=== PATIENT | male | born 1940 | race Caucasian/White ===

== ENCOUNTER → 2018-02-10 | Outpatient (CLI) | payer OTHER ==
[~2018-02-10] MED LIST: ATOR10 PO; ATORVASTATIN CA10 MG PO; ATORVASTATIN CA20 MG PO; CHOL10002; DOCU100 PO; Duragesic 12 M12 MCG TOP; HYDR1TAB94 PO; LAVAP17G PO; MULVITMIND PO; NEOMYCIN-POLYMYXIN-H; NUTRISOURCE FIBE4 GM PO; TAMS.4ER PO; TAMSULOSIN HCL0.4 MG PO
== END | disposition home or self-care (01) ==
LOC: PLD 10:20 → LAB SHORT 10:20
DX: C44.612 Basal cell carcinoma of skin of right upper limb, including shoulder (principal); C44.319 Basal cell carcinoma of skin of other parts of face
CPT/HCPCS: 88305

== ENCOUNTER 2018-11-05 23:20 | Emergency (ER) | payer OTHER ==
[~2018-11-05] VITALS: Ht 177.8 cm; Wt 90.7 kg
[~2018-11-05 23:20] MED LIST changes: +CYCL0.05OP
[2018-11-05 23:48] LABS: BASOPHILS ABSOLUTE AUTO 0.05 K/mm3 (0.00-0.23); BASOPHILS PERCENT AUTO 0 % (0-2); EOSINOPHILS ABSOLUTE AUTO 0.38 K/mm3 (0.00-0.68); EOSINOPHILS PERCENT AUTO 3 % (0-6); Hematocrit 34.7 % (37.0-53.0); Hemoglobin 11.2 g/dL (13.5-17.5); IMMATURE GRAN ABSOLUTE AUTO 0.06 K/mm3 (0.00-0.10); IMMATURE GRAN PERCENT AUTO 1 % (0-1); LYMPHOCYTES ABSOLUTE AUTO 0.86 K/mm3 (0.84-5.20); LYMPHOCYTES PERCENT AUTO 7 % (21-46); MONOCYTES ABSOLUTE AUTO 0.69 K/mm3 (0.16-1.47); MONOCYTES PERCENT AUTO 6 % (4-13); Mean Corpuscular HGB 30.3 pg (26.0-34.0); Mean Corpuscular HGB Conc 32.3 g/dL (31.5-36.5); Mean Corpuscular Volume 94 fL (80-100); NEUTROPHILS ABSOLUTE AUTO 9.67 K/mm3 (1.96-9.15); NEUTROPHILS PERCENT AUTO 83 % (41-73); Platelet Count 319 K/mm3 (150-400); RDW Coefficient Variation 14.1 % (11.7-14.2); RDW Standard Deviation 48.2 fL (35.1-46.3); White Blood Cell Count 11.71 K/mm3 (4.00-11.30)
[2018-11-06 00:05] LABS: Alanine Aminotransfer (ALT/SGP 52 U/L (12-78); Albumin, Blood 3.3 g/dL (3.4-5.0); Albumin/Globulin Ratio 0.9 (0.8-1.8); Alk Phos 107 U/L (50-136); Anion Gap 8 mmol/L (6-16); Aspartate Aminotrans (AST/SGOT 40 U/L (12-37); Bilirubin, Total 0.3 mg/dL (0.1-1.0); Blood Urea Nitrogen 22 mg/dL (8-24); CO2, Blood 26 mmol/L (21-32); Calcium, Blood 8.7 mg/dL (8.5-10.1); Chloride, Blood 108 mmol/L (98-108); Creatinine, Blood 0.88 mg/dL (0.60-1.20); Globulin, Blood 3.6 g/dL (2.2-4.0); Glomerular Filtration Rate >60 (60-); Glucose, Blood 124 mg/dL (70-99); Potassium, Blood 4.4 mmol/L (3.5-5.5); Sodium, Blood 142 mmol/L (136-145); Total Protein, Blood 6.9 g/dL (6.4-8.2)
[2018-11-06 00:41] LABS: International Normalized Ratio 1.04
[2018-11-06] MEDS ORDERED: AMLO10 PO (00:57)
[2018-11-06] MEDS ORDERED: ACET500 (00:57)
[2018-11-06] MEDS ORDERED: ASPI81CH PO (00:58)
[2018-11-06] MEDS ORDERED: ASCO500 PO (00:58)
[2018-11-06] MEDS ORDERED: ATOR20 PO (00:59)
[2018-11-06] MEDS ORDERED: Ferrous Sulfat325 M2 PO (01:00)
[2018-11-06] MEDS ORDERED: FURO40 PO (01:01)
[2018-11-06] MEDS ORDERED: POTCHL20ER PO (01:02)
[2018-11-06] MEDS ORDERED: Hydrocodone-Ap1 EA23 PO (01:02)
[2018-11-06 02:23] LABS: Source, Urine Clean Catch
[2018-11-06 02:25] LABS: Bilirubin, Urine Neg (Neg); Blood, Urine 1+ (Neg); Glucose Qualitative, Urine Neg (Neg); Ketones, Urine Neg (Neg); Leukocyte Esterase, Urine Neg (Neg); Nitrite, Urine Neg (Neg); Protein, Urine Neg (Neg); Specific Gravity, Urine 1.015 (1.003-1.022); Urobilinogen, Urine NORM (Normal)
[2018-11-06 02:27] LABS: Appearance, Urine Clear (Clear); Color, Urine Yellow (P-Yellow)
[2018-11-06 02:31] LABS: Bacteria Not Seen /hpf; Squamous Epithelial Cells Not Seen /hpf (Few); White Blood Cells, Urine 0-2 /hpf (0-5)
[2018-11-06] MEDS ORDERED: Roxicodone5 MG PO (02:38)
== END 2018-11-06 03:00 | disposition home or self-care (01) ==
LOC: ER 23:20
PROVIDERS: Emergency Medicine
DX: N13.2 Hydronephrosis with renal and ureteral calculous obstruction (principal); Z79.899 Other long term (current) drug therapy
CPT/HCPCS: 36415; 74177; 80053; 81001; 83690; 85025; 85610; 85730; 96374; 96375; 96376; 99284-25; J1170; J2405; Q9967

== ENCOUNTER → 2019-02-22 | Outpatient (CLI) | payer OTHER ==
[~2019-02-22] MED LIST changes: +ACET500; +AMLO10 PO; +ASCO500 PO; +ASPI81CH PO; +ATOR20 PO; +FURO40 PO; +Ferrous Sulfat325 M2 PO; +Hydrocodone-Ap1 EA23 PO; +POTCHL20ER PO; +Roxicodone5 MG PO
== END | disposition home or self-care (01) ==
LOC: LAB SHORT 10:09 → PLD 10:09
DX: C44.319 Basal cell carcinoma of skin of other parts of face (principal); C44.519 Basal cell carcinoma of skin of other part of trunk
CPT/HCPCS: 88305

== ENCOUNTER → 2021-01-09 | Outpatient (CLI) | payer MEDICARE | LOC: PLD 12:29 → LAB SHORT 12:29 | DX: D48.5 Neoplasm of uncertain behavior of skin (principal); L57.0 Actinic keratosis; L90.5 Scar conditions and fibrosis of skin | CPT/HCPCS: 88305 ==

== ENCOUNTER 2022-03-12 23:24 | Inpatient (IN) | payer MEDICARE ==
[~2022-03-12] VITALS: Ht 175.3 cm; Wt 77.3 kg
[2022-03-13 00:02] LABS: BASOPHILS ABSOLUTE AUTO 0.04 K/mm3 (0.00-0.23); BASOPHILS PERCENT AUTO 1 % (0-2); EOSINOPHILS PERCENT AUTO 5 % (0-6); Hematocrit 34.5 % (37.0-53.0); Hemoglobin 11.5 g/dL (13.5-17.5); IMMATURE GRAN ABSOLUTE AUTO 0.01 K/mm3 (0.00-0.10); IMMATURE GRAN PERCENT AUTO 0 % (0-1); LYMPHOCYTES ABSOLUTE AUTO 1.64 K/mm3 (0.84-5.20); LYMPHOCYTES PERCENT AUTO 21 % (21-46); MONOCYTES ABSOLUTE AUTO 0.64 K/mm3 (0.16-1.47); MONOCYTES PERCENT AUTO 8 % (4-13); Mean Corpuscular HGB 31.1 pg (26.0-34.0); Mean Corpuscular HGB Conc 33.3 g/dL (31.5-36.5); Mean Corpuscular Volume 93 fL (80-100); Mean Platelet Volume 12.4 fL (9.1-12.4); NEUTROPHILS ABSOLUTE AUTO 5.07 K/mm3 (1.96-9.15); NEUTROPHILS PERCENT AUTO 65 % (41-73); Platelet Count 156 K/mm3 (150-400); RDW Coefficient Variation 13.3 % (11.7-14.2); RDW Standard Deviation 45.7 fL (35.1-46.3)
[2022-03-13] MEDS ORDERED: CLOP75 PO (00:02)
[2022-03-13] MEDS ORDERED: ESCI10 (00:04)
[2022-03-13 00:22] LABS: Albumin, Blood 3.5 g/dL (3.4-5.0); Albumin/Globulin Ratio 1.3 (0.8-1.8); Bilirubin, Total 0.5 mg/dL (0.1-1.0); Bun/Creatinine Ratio 44.8 (12.0-20.0); Calcium, Blood 9.5 mg/dL (8.5-10.1); Creatinine, Blood 0.67 mg/dL (0.60-1.20); Globulin, Blood 2.7 g/dL (2.2-4.0); Potassium, Blood 4.4 mmol/L (3.5-5.5); Total Protein, Blood 6.2 g/dL (6.4-8.2)
--- NOTE | 2022-03-13 03:05 | NUR ---
Pt admitted to PCU. Pt is A&O. VSS on RA. Pt upt to bathroom with supervision. Tele: Sinus holger 50-60s. Clear liquid diet at this time.
--- NOTE | 2022-03-13 04:18 | NUR ---
Pt had bright red liquid stool.
[2022-03-13 06:27] LABS: BASOPHILS ABSOLUTE AUTO 0.04 K/mm3 (0.00-0.23); BASOPHILS PERCENT AUTO 1 % (0-2); EOSINOPHILS ABSOLUTE AUTO 0.33 K/mm3 (0.00-0.68); EOSINOPHILS PERCENT AUTO 6 % (0-6); Hematocrit 28.7 % (37.0-53.0); Hemoglobin 9.5 g/dL (13.5-17.5); IMMATURE GRAN ABSOLUTE AUTO 0.02 K/mm3 (0.00-0.10); IMMATURE GRAN PERCENT AUTO 0 % (0-1); LYMPHOCYTES ABSOLUTE AUTO 1.55 K/mm3 (0.84-5.20); LYMPHOCYTES PERCENT AUTO 28 % (21-46); MONOCYTES ABSOLUTE AUTO 0.48 K/mm3 (0.16-1.47); MONOCYTES PERCENT AUTO 9 % (4-13); Mean Corpuscular HGB Conc 33.1 g/dL (31.5-36.5); Mean Corpuscular Volume 94 fL (80-100); Mean Platelet Volume 12.8 fL (9.1-12.4); NEUTROPHILS ABSOLUTE AUTO 3.15 K/mm3 (1.96-9.15); NEUTROPHILS PERCENT AUTO 57 % (41-73); Platelet Count 136 K/mm3 (150-400); RDW Coefficient Variation 13.6 % (11.7-14.2); RDW Standard Deviation 46.7 fL (35.1-46.3); Red Blood Cell Count 3.06 M/mm3 (4.30-5.90); White Blood Cell Count 5.57 K/mm3 (4.00-11.30)
--- NOTE | 2022-03-13 06:36 | NUR ---
Bowel prep was started. Stools still bright red w/ clots at this time.
[2022-03-13 06:47] LABS: Albumin, Blood 2.9 g/dL (3.4-5.0); Albumin/Globulin Ratio 1.3 (0.8-1.8); Bilirubin, Total 0.4 mg/dL (0.1-1.0); Bun/Creatinine Ratio 39.2 (12.0-20.0); Calcium, Blood 8.8 mg/dL (8.5-10.1); Creatinine, Blood 0.61 mg/dL (0.60-1.20); Globulin, Blood 2.2 g/dL (2.2-4.0); Potassium, Blood 4.1 mmol/L (3.5-5.5); Total Protein, Blood 5.1 g/dL (6.4-8.2)
[2022-03-13 12:14] LABS: Hemoglobin 10.2 g/dL (13.5-17.5)
[2022-03-13 13:58] LABS: SARS-Cov-2 (COVID-19) PCR, MMC NEGATIVE (NEGATIVE)
--- NOTE | 2022-03-13 15:59 | NUR ---
Patient in Day Surgery for planned colonosocpy. Reports taking all of colon prep with "blood" output. History, Chart, Medications and Allergies reviewed before start of procedure. Patient confirms NPO status and agrees with scheduled surgery.
--- NOTE | 2022-03-13 16:30 | NUR ---
PT TO PROCEDURE PT LEFT FOR SCOPE AT APPROXIMATELY 1530. A&Ox4, VSS, SPO2> 92%, SR 60'S. PERIPHERAL IV SALINE LOCKED, PT CHANGED INTO HOSPITAL GOWN. PT WITH ONE 100ML LIQUID BLOODY STOOL JUST BEFORE LEAVING FOR SCOPE.
--- NOTE | 2022-03-13 16:31 | NUR ---
03/13/22 1631 Ronnie Tomlinson History, Chart, Medications and Allergies reviewed before start of procedure. Patient confirms NPO status and agrees with scheduled surgery. 3-LEAD EKG REVIEWED WITH PHYSICIAN PRIOR TO START OF PROCEDURE. MONITOR INTACT WITH CONTINUOUS PULSE OXIMETRY AND INTERMITTENT BP. PATIENT DETERMINED TO BE ASA APPROPRIATE FOR PROPOFOL SEDATION PRIOR TO START OF PROCEDURE BY DR. SMALLWOOD
--- NOTE | 2022-03-13 17:38 | NUR ---
UPDATE PT BACK TO PCU ROOM AT APPROXIMATELY 1700. MD REPORT UNABLE TO COMPLETE SCOPE D/T LACK OF VISABLITY. WITH INSTRUCTION FOR PT TO REPEAT GOLYTELY. WILL NOTIFY MD WHEN PT IS FINISHED WITH GOLYTELY.
--- NOTE | 2022-03-13 18:29 | NUR ---
SHIFT SUMMARY PT A&Ox4, VSS, SPO2> 92% RA, SB-SR 50-60'S. PT WITH MULTIPLE EPISODES OF BRIGHT RED LIQUID STOOLS THIS SHIFT. NOTIFIED THAT PT FINISHED GOLYTELY. WITH PLAN TO SCOPE PT TONIGHT. WILL CONTINUE TO MONITOR AND PROVIDE CARE UNTIL REPORT TO NOC.
[2022-03-13 18:32] LABS: Hematocrit 30.4 % (37.0-53.0); Hemoglobin 9.9 g/dL (13.5-17.5)
--- NOTE | 2022-03-13 18:54 | NUR ---
THIS RN AGREES W/ STUDENT NURSE DOCUMENTATION THIS SHIFT.
--- NOTE | 2022-03-13 20:59 | NUR ---
SPICE MILLER NOTIFIED RN THAT THERE WERE ST CHANGES SINCE 1829 SINUS RHYTHM WITH PVC'S. CALLED DR ESCOTO AT 2038, DR ESCOTO CALLED BACK AT 2039. NOTIFIED ABOUT PT'S ST CHANGES AND THAT PT WAS NOT EXPERIENCING ANY CP, BLOOD PRESSURE STABLE, SR WITH PVC'S. DR ESCOTO ORDERED EKG; NO OTHER ORDERS DUE TO PATIENT DENYING CP
--- NOTE | 2022-03-13 21:31 | NUR ---
PT WENT DOWN FOR COLONOSCOPY AT 2119.
--- NOTE | 2022-03-13 21:44 | NUR ---
PT IS ALERT AND ORIENTED X4. DENIES CP, NAUSEA, TINGLING, AND NUMBNESS. PT HAD CLEAR LUNG SOUNDS W/ SP02 >90% WHILE ON RA. SR WITH BBB IN THE HIGH 50'S-60'S. PT HAD ONE LARGE ANGÉLICA RED LIQUID STOOL. SWIMMING POOL SERVICE TECHNICIAN NOTIFIED RN OF ST CHANGES (SEE NOTES). PT'S HAS BEEN IN ROOM SINCE 2030
--- NOTE | 2022-03-13 22:36 | NUR ---
03/13/22 2236 Bhumi Banks History, Chart, Medications and Allergies reviewed before start of procedure. Patient confirms NPO status and agrees with scheduled surgery. 3-LEAD EKG REVIEWED WITH PHYSICIAN PRIOR TO START OF PROCEDURE. MONITOR INTACT WITH CONTINUOUS PULSE OXIMETRY AND INTERMITTENT BP. PATIENT DETERMINED TO BE ASA APPROPRIATE FOR PROPOFOL SEDATION PRIOR TO START OF PROCEDURE BY
--- NOTE | 2022-03-13 23:51 | NUR ---
PT CAME BACK FROM PACU AT 2334. PER REPORT HIS BLEED WAS CLAMPED WITH 4 CLIPS AND WAS CAUSED BY A SMALL DIVERTICULI. NURSE ALSO STATED THAT DR SMALLWOOD FOUND SEVERAL DIVERTICULUM. PT ALSO HAD 2MG OF VERSED AND 420 MCG PROPOFOL. PT IS ON CLEAR LIQUID DIET. RECOVERY VITALS STARTED. SCD'S PUT ON AND PT NOTIFIED TO USE CALL LIGHT IF RESTROOM IS NEEDED.
[2022-03-14 04:09] LABS: BASOPHILS ABSOLUTE AUTO 0.04 K/mm3 (0.00-0.23); BASOPHILS PERCENT AUTO 1 % (0-2); EOSINOPHILS ABSOLUTE AUTO 0.05 K/mm3 (0.00-0.68); EOSINOPHILS PERCENT AUTO 1 % (0-6); Hemoglobin 7.6 g/dL (13.5-17.5); IMMATURE GRAN ABSOLUTE AUTO 0.01 K/mm3 (0.00-0.10); IMMATURE GRAN PERCENT AUTO 0 % (0-1); LYMPHOCYTES ABSOLUTE AUTO 0.88 K/mm3 (0.84-5.20); LYMPHOCYTES PERCENT AUTO 17 % (21-46); MONOCYTES PERCENT AUTO 6 % (4-13); Mean Corpuscular HGB 31.4 pg (26.0-34.0); Mean Corpuscular Volume 95 fL (80-100); Mean Platelet Volume 12.8 fL (9.1-12.4); NEUTROPHILS ABSOLUTE AUTO 3.82 K/mm3 (1.96-9.15); NEUTROPHILS PERCENT AUTO 75 % (41-73); Platelet Count 129 K/mm3 (150-400); RDW Coefficient Variation 13.5 % (11.7-14.2); RDW Standard Deviation 47.9 fL (35.1-46.3); Red Blood Cell Count 2.42 M/mm3 (4.30-5.90)
[2022-03-14 04:34] LABS: Albumin, Blood 2.6 g/dL (3.4-5.0); Albumin/Globulin Ratio 1.3 (0.8-1.8); Bilirubin, Total 0.5 mg/dL (0.1-1.0); Bun/Creatinine Ratio 29.4 (12.0-20.0); Creatinine, Blood 0.55 mg/dL (0.60-1.20); Potassium, Blood 3.8 mmol/L (3.5-5.5); Total Protein, Blood 4.6 g/dL (6.4-8.2)
--- NOTE | 2022-03-14 06:13 | NUR ---
PT STATED HE SLEPT WELL THROUGH THE NIGHT. PT HAD ANOTHER BLOODY STOOL THAT WAS JELLY LIKE AT 0151.
--- NOTE | 2022-03-14 06:20 | NUR ---
THIS RN AGREES WITH GRADUATE ASSISTANT GIOVANNY Cintron'S DOCUMENTATION.
[2022-03-14 14:20] LABS: BASOPHILS ABSOLUTE AUTO 0.03 K/mm3 (0.00-0.23); BASOPHILS PERCENT AUTO 0 % (0-2); EOSINOPHILS ABSOLUTE AUTO 0.12 K/mm3 (0.00-0.68); EOSINOPHILS PERCENT AUTO 2 % (0-6); Hematocrit 26.1 % (37.0-53.0); Hemoglobin 8.6 g/dL (13.5-17.5); IMMATURE GRAN ABSOLUTE AUTO 0.02 K/mm3 (0.00-0.10); IMMATURE GRAN PERCENT AUTO 0 % (0-1); LYMPHOCYTES ABSOLUTE AUTO 1.54 K/mm3 (0.84-5.20); LYMPHOCYTES PERCENT AUTO 20 % (21-46); MONOCYTES ABSOLUTE AUTO 0.63 K/mm3 (0.16-1.47); MONOCYTES PERCENT AUTO 8 % (4-13); Mean Corpuscular HGB 30.5 pg (26.0-34.0); Mean Corpuscular Volume 93 fL (80-100); Mean Platelet Volume 12.8 fL (9.1-12.4); NEUTROPHILS ABSOLUTE AUTO 5.34 K/mm3 (1.96-9.15); NEUTROPHILS PERCENT AUTO 69 % (41-73); Platelet Count 144 K/mm3 (150-400); RDW Coefficient Variation 15.3 % (11.7-14.2); RDW Standard Deviation 51.7 fL (35.1-46.3); Red Blood Cell Count 2.82 M/mm3 (4.30-5.90); White Blood Cell Count 7.68 K/mm3 (4.00-11.30)
--- NOTE | 2022-03-14 18:16 | NUR ---
SHIFT SUMMARY PT A&O X4. VSS. SPO2 > 92% ON RA. MONITOR SHOWING SB-SR, HR 50's-70's. PT W/ APPROX 700 MLS DARK MAROON/RED MIX OF LIQUID & JELLY LIKE RECTAL OUTPUT THIS SHIFT. PT W/ LIGHTHEADEDNESS GETTING UP TO THE BATHROOM THIS AM. MD SMALLWOOD NOTIFIED OF GI OUTPUT & LIGHTHEADEDNESS (VSS). MD SMALLWOOD W/ ORDER FOR 1 UNIT pRBC's, INFUSED THIS SHIFT. PT TOLERATED WELL. PT THEN DENYING LIGHTHEADEDNESS AFTER RECIEVING BLOOD. PT TOLERATING CLEAR LIQUID DIET (NO REDS). NO OTHER EVENTS.
--- NOTE | 2022-03-14 20:48 | NUR ---
ASSUMPTION OF CARE PT IS ALERT AND ORIENTED X4. PT IS ON TELEMETRY WITH FHB BBB @ 58. TELEMETRY SHOWS THAT THERE ARE ST CHANGES, BUT EKG DID NOT SHOW THE ST CHANGES PER ONCOMING REPORT. HAS CLEAR LUNG SOUNDS SPO2 >90% ON RA. PT HAS PITTING EDEMA IN BLE. BOTH BLE DO NOT LOOK EDEMETOUS, BUT IS PITTING. PT STATED THAT HE HAS BEEN HAVING TROUBLE URINATING WITHOUT HAVING A BOWEL MOVEMENT, BUT THE LAST TWO TIMES HE URINATED HE DID NOT FEEL THE URGE OR HAVE ONE. PT'S CAME INTO THE ROOM AT 1999.
--- NOTE | 2022-03-15 05:21 | NUR ---
SHIFT SUMMARY PT IS ALERT AND ORIENTED X4. PT IS ON TELEMETRY FHB BBB HR @66. LUNG SOUNDS CLEAR SPO2>90%. PT TOOK SCD'S OFF AT 0200. PT HAD ONE SMALL RED/JELLY LIKE BOWEL MOVEMENT. PCT STATED THAT PT WENT TO THE RESTROOM AGAIN, BUT FLUSHED BEFORE SHE COULD SEE IF HE HAD ANOTHER BOWEL MOVEMENT. PT POSSIBLY DISCHARGING 6/4 DEPENDING ON HEMOGLOBIN.
--- NOTE | 2022-03-15 06:09 | NUR ---
THIS RN AGREES WITH FIRER MARINE GIOVANNY Cintron'S DOCUMENTATION
[2022-03-15 06:38] LABS: BASOPHILS ABSOLUTE AUTO 0.03 K/mm3 (0.00-0.23); BASOPHILS PERCENT AUTO 1 % (0-2); EOSINOPHILS ABSOLUTE AUTO 0.25 K/mm3 (0.00-0.68); EOSINOPHILS PERCENT AUTO 4 % (0-6); Hematocrit 20.9 % (37.0-53.0); IMMATURE GRAN ABSOLUTE AUTO 0.02 K/mm3 (0.00-0.10); IMMATURE GRAN PERCENT AUTO 0 % (0-1); LYMPHOCYTES ABSOLUTE AUTO 1.32 K/mm3 (0.84-5.20); LYMPHOCYTES PERCENT AUTO 22 % (21-46); MONOCYTES ABSOLUTE AUTO 0.51 K/mm3 (0.16-1.47); MONOCYTES PERCENT AUTO 9 % (4-13); Mean Corpuscular HGB 30.6 pg (26.0-34.0); Mean Corpuscular HGB Conc 33.5 g/dL (31.5-36.5); Mean Corpuscular Volume 91 fL (80-100); Mean Platelet Volume 12.7 fL (9.1-12.4); NEUTROPHILS ABSOLUTE AUTO 3.81 K/mm3 (1.96-9.15); NEUTROPHILS PERCENT AUTO 64 % (41-73); Platelet Count 125 K/mm3 (150-400); RDW Coefficient Variation 15.5 % (11.7-14.2); RDW Standard Deviation 51.7 fL (35.1-46.3); Red Blood Cell Count 2.29 M/mm3 (4.30-5.90); White Blood Cell Count 5.94 K/mm3 (4.00-11.30)
[2022-03-15 06:51] LABS: Albumin, Blood 2.5 g/dL (3.4-5.0); Anion Gap 5 mmol/L (6-16); Blood Urea Nitrogen 14 mg/dL (8-24); Bun/Creatinine Ratio 25.1 (12.0-20.0); CO2, Blood 27 mmol/L (21-32); Calcium, Blood 8.3 mg/dL (8.5-10.1); Chloride, Blood 112 mmol/L (98-108); Creatinine, Blood 0.56 mg/dL (0.60-1.20); Glomerular Filtration Rate 100 (60-); Glucose, Blood 104 mg/dL (70-99); Phosphorus, Blood 2.5 mg/dL (2.5-4.9); Potassium, Blood 3.5 mmol/L (3.5-5.5); Sodium, Blood 144 mmol/L (136-145)
[2022-03-15 14:17] LABS: Hematocrit 22.2 % (37.0-53.0); Hemoglobin 7.3 g/dL (13.5-17.5)
--- NOTE | 2022-03-15 17:23 | NUR ---
TRANSFER: DR SMALLWOOD IN TO SEE PATIENT REGARDING POSSIBLE TRANSFER. PT CONTINUES TO PASS ANGÉLICA RED CLOTS AND BLOOD RECTALLY. CONT TO CHECK H+H PER ORDERS. PT NPO AT THIS TIME EXCEPT FOR WATER.
--- NOTE | 2022-03-15 17:48 | NUR ---
PT HAS BEEN STABLE THIS SHIFT. PT CONTINUES TO HAVE ANGÉLICA RED CLOTS RECTALLY. LAST H+H 7.3,22.2 DR SMALLWOOD IN TO DISCUSS POSSIBLE TRANSFER FOR FURTHER PROCEDURE SINCE PT HAS CONTINUED TO BLEED. PT MADE NPO EXCEPT FOR WATER. PT UP INDEP TO BATHROOM NEEDED. DENIES LIGHTHEADEDNESS OR DIZZINESS. TELE SINUS RENETTA. AM LABS TO BE REPEATED. AWAITING FURTHER ORDERS FOR TRANSFER.
[2022-03-15 18:49] LABS: Hematocrit 22.8 % (37.0-53.0); Hemoglobin 7.6 g/dL (13.5-17.5); Mean Corpuscular HGB 30.4 pg (26.0-34.0); Mean Corpuscular HGB Conc 33.3 g/dL (31.5-36.5); Mean Corpuscular Volume 91 fL (80-100); Mean Platelet Volume 12.2 fL (9.1-12.4); Platelet Count 144 K/mm3 (150-400); RDW Coefficient Variation 15.2 % (11.7-14.2); RDW Standard Deviation 51.6 fL (35.1-46.3); White Blood Cell Count 7.16 K/mm3 (4.00-11.30)
--- NOTE | 2022-03-15 20:05 | NUR ---
UPDATE CALLED DR SMALLWOOD AT 2001 WITH RN LEIA Mckeon LISTENING ON SPEAKER PHONE. DR SMALLWOOD WAS UPDATED ON PATIENT'S LAB VALUES AND HOW THE PT WAS DOING. DR SMALLWOOD STATED HE WILL BE BY TO TALK TO THE PT IN HALF AN HOUR FROM PHONE CALL.
--- NOTE | 2022-03-15 20:07 | NUR ---
ASSUMPTION OF CARE PT IS ALERT AND ORIENTED X4. PT IS ON TELEMETRY WITH FHB, BBB, HR @ 64. PT HAS CLEAR LUNG SOUNDS SPO2 >90%. RECEIVED REPORT @ BEDSIDE AND INCLUDED PT IN DISCUSSION ABOUT PT'S CONDITION AND CAREPLAN. PT STATED HE DID WANT SCD'S ON FOR NOW DUE TO FREQUENT BATHROOM TRIPS.
--- NOTE | 2022-03-15 22:21 | NUR ---
UPDATE DR. SMALLWOOD STOPPED BY AT 2054 AND INSTRUCTED THIS PROCESS CAMERA OPERATOR AND LEIA RN TO CONTACT HIM WHEN THE PT IS SLEEPING.
--- NOTE | 2022-03-15 23:45 | NUR ---
UPDATE CALLED DR SMALLWOOD @ 0058 TO INFORM HIM THAT PT IS UP.
--- NOTE | 2022-03-16 00:31 | NUR ---
UPDATE 1023 DR SMALLWOOD TALKED TO PT AND DISCUSSED CONTINUATION OF CARE AND NEW CAREPLAN. DR SMALLWOOD TOLD THIS VETERINARY MICROBIOLOGIST AND LEIA RN ABOUT ORDERS FOR WATER ONLY THEN NPO AT 8 FOR EGD IN THE MORNING.
[2022-03-16 04:21] LABS: BASOPHILS ABSOLUTE AUTO 0.04 K/mm3 (0.00-0.23); BASOPHILS PERCENT AUTO 1 % (0-2); EOSINOPHILS ABSOLUTE AUTO 0.28 K/mm3 (0.00-0.68); EOSINOPHILS PERCENT AUTO 3 % (0-6); Hematocrit 23.8 % (37.0-53.0); Hemoglobin 7.9 g/dL (13.5-17.5); IMMATURE GRAN ABSOLUTE AUTO 0.02 K/mm3 (0.00-0.10); IMMATURE GRAN PERCENT AUTO 0 % (0-1); LYMPHOCYTES ABSOLUTE AUTO 1.99 K/mm3 (0.84-5.20); LYMPHOCYTES PERCENT AUTO 24 % (21-46); MONOCYTES ABSOLUTE AUTO 0.74 K/mm3 (0.16-1.47); MONOCYTES PERCENT AUTO 9 % (4-13); Mean Corpuscular HGB 30.7 pg (26.0-34.0); Mean Corpuscular HGB Conc 33.2 g/dL (31.5-36.5); Mean Corpuscular Volume 93 fL (80-100); Mean Platelet Volume 12.4 fL (9.1-12.4); NEUTROPHILS ABSOLUTE AUTO 5.41 K/mm3 (1.96-9.15); NEUTROPHILS PERCENT AUTO 64 % (41-73); Platelet Count 166 K/mm3 (150-400); RDW Coefficient Variation 15.1 % (11.7-14.2); RDW Standard Deviation 50.5 fL (35.1-46.3); Red Blood Cell Count 2.57 M/mm3 (4.30-5.90); White Blood Cell Count 8.48 K/mm3 (4.00-11.30)
--- NOTE | 2022-03-16 06:06 | NUR ---
UPDATE WENT ON A WALK WITH PT.
--- NOTE | 2022-03-16 06:11 | NUR ---
PT IS ALERT AND ORIENTED X4. PT IS ON TELEMETRY WITH FHB, BBB, @68. SPO2>90%. PT DISCUSSED WITH DR SMALLWOOD ABOUT CURRENT SITUATION AND CURRENT CARE PLAN. WATER ONLY UNTIL NPO AT 0800 FOR EGD. PT DID NOT HAVE ANY BOWELS DURING THE NIGHT. PT WENT ON A WALK WITH THIS DEPARTMENT CLERK AND DID NOT FEEL ANY LIGHT HEADEDNESS OR DIZZINESS.
--- NOTE | 2022-03-16 06:38 | NUR ---
THIS RN AGREES WITH A&P MECHANIC GIOVANNY Cintron'S DOCUMENTATION
[2022-03-16 11:12] LABS: BASOPHILS ABSOLUTE AUTO 0.03 K/mm3 (0.00-0.23); BASOPHILS PERCENT AUTO 1 % (0-2); EOSINOPHILS ABSOLUTE AUTO 0.22 K/mm3 (0.00-0.68); EOSINOPHILS PERCENT AUTO 4 % (0-6); Hematocrit 19.1 % (37.0-53.0); Hemoglobin 6.3 g/dL (13.5-17.5); IMMATURE GRAN ABSOLUTE AUTO 0.01 K/mm3 (0.00-0.10); IMMATURE GRAN PERCENT AUTO 0 % (0-1); LYMPHOCYTES ABSOLUTE AUTO 1.05 K/mm3 (0.84-5.20); LYMPHOCYTES PERCENT AUTO 19 % (21-46); MONOCYTES ABSOLUTE AUTO 0.49 K/mm3 (0.16-1.47); MONOCYTES PERCENT AUTO 9 % (4-13); Mean Corpuscular HGB 30.7 pg (26.0-34.0); Mean Corpuscular Volume 93 fL (80-100); Mean Platelet Volume 12.3 fL (9.1-12.4); NEUTROPHILS ABSOLUTE AUTO 3.72 K/mm3 (1.96-9.15); NEUTROPHILS PERCENT AUTO 67 % (41-73); Platelet Count 133 K/mm3 (150-400); RDW Coefficient Variation 15.2 % (11.7-14.2); RDW Standard Deviation 51.7 fL (35.1-46.3); Red Blood Cell Count 2.05 M/mm3 (4.30-5.90); White Blood Cell Count 5.52 K/mm3 (4.00-11.30)
--- NOTE | 2022-03-16 18:12 | NUR ---
SHIFT SUMMARY; ASSUMED CARE AT 0700. A/A/OX4 DURING SHIFT. INDEPENDANT IN ROOM. USES RESTROOM SEVERAL TIMES, STATES VERY MINIMAL DARK BLACK STOOL. DENIES ANGÉLICA RED BLOOD. EVALUATED BY DR. SMALLWOOD. DR. SMALLWOOD TO DISCUSS NEED FOR POSSIBLE UPPER GI IF DARK STOOL CONTINUES WITH ANOTHER GI SPECIALIST HE WILL BE OFF TOMARROW. 2 UNITS PRBC ORDERED AND STARTED PRIOR TO END OF SHIFT. VSS THROUGHOUT DAY, DIET CHANGED TO FULL LIQUID, TOLERATING WELL. ABD REMAINS SOFT AND NON TENDER, WILL CONTINUE TO MONITOR AND TREAT UNTIL CHANGE OF SHIFT.
[2022-03-17 00:21] LABS: BASOPHILS ABSOLUTE AUTO 0.02 K/mm3 (0.00-0.23); BASOPHILS PERCENT AUTO 0 % (0-2); EOSINOPHILS ABSOLUTE AUTO 0.25 K/mm3 (0.00-0.68); EOSINOPHILS PERCENT AUTO 4 % (0-6); Hematocrit 25.6 % (37.0-53.0); Hemoglobin 8.7 g/dL (13.5-17.5); IMMATURE GRAN ABSOLUTE AUTO 0.02 K/mm3 (0.00-0.10); IMMATURE GRAN PERCENT AUTO 0 % (0-1); LYMPHOCYTES ABSOLUTE AUTO 1.49 K/mm3 (0.84-5.20); LYMPHOCYTES PERCENT AUTO 22 % (21-46); MONOCYTES ABSOLUTE AUTO 0.62 K/mm3 (0.16-1.47); MONOCYTES PERCENT AUTO 9 % (4-13); Mean Corpuscular HGB 30.3 pg (26.0-34.0); Mean Corpuscular Volume 89 fL (80-100); Mean Platelet Volume 12.3 fL (9.1-12.4); NEUTROPHILS ABSOLUTE AUTO 4.24 K/mm3 (1.96-9.15); NEUTROPHILS PERCENT AUTO 64 % (41-73); Platelet Count 144 K/mm3 (150-400); RDW Coefficient Variation 15.1 % (11.7-14.2); RDW Standard Deviation 49.1 fL (35.1-46.3); Red Blood Cell Count 2.87 M/mm3 (4.30-5.90); White Blood Cell Count 6.64 K/mm3 (4.00-11.30)
--- NOTE | 2022-03-17 04:23 | NUR ---
SHIFT SUMMARY A/OX4, IND TO BATHROOM. PT RECIEVED 2 UNITS PRBC THIS SHIFT. NO BM THIS SHIFT. DENIES PAIN OR SOB. BP'S SOFT, TELE SR WITH BBB IN THE 60'S. BED IN LOWEST POSITION WITH CALL LIGHT IN REACH. WILL CONTINUE TO MONITOR AND REPORT TO ONCOMING RN.
[2022-03-17 08:17] LABS: BASOPHILS ABSOLUTE AUTO 0.04 K/mm3 (0.00-0.23); BASOPHILS PERCENT AUTO 1 % (0-2); EOSINOPHILS ABSOLUTE AUTO 0.22 K/mm3 (0.00-0.68); EOSINOPHILS PERCENT AUTO 4 % (0-6); Hematocrit 23.3 % (37.0-53.0); IMMATURE GRAN ABSOLUTE AUTO 0.02 K/mm3 (0.00-0.10); IMMATURE GRAN PERCENT AUTO 0 % (0-1); LYMPHOCYTES ABSOLUTE AUTO 1.13 K/mm3 (0.84-5.20); LYMPHOCYTES PERCENT AUTO 19 % (21-46); MONOCYTES ABSOLUTE AUTO 0.56 K/mm3 (0.16-1.47); MONOCYTES PERCENT AUTO 10 % (4-13); Mean Corpuscular HGB 31.3 pg (26.0-34.0); Mean Corpuscular HGB Conc 34.3 g/dL (31.5-36.5); Mean Corpuscular Volume 91 fL (80-100); Mean Platelet Volume 12.3 fL (9.1-12.4); NEUTROPHILS ABSOLUTE AUTO 3.86 K/mm3 (1.96-9.15); NEUTROPHILS PERCENT AUTO 66 % (41-73); Platelet Count 141 K/mm3 (150-400); RDW Coefficient Variation 15.5 % (11.7-14.2); RDW Standard Deviation 51.2 fL (35.1-46.3); Red Blood Cell Count 2.56 M/mm3 (4.30-5.90); White Blood Cell Count 5.83 K/mm3 (4.00-11.30)
--- NOTE | 2022-03-17 14:22 | NUR ---
History, Chart, Medications and Allergies reviewed before start of procedure.Lungs clear T/O to Auscultation. Pre-Op teaching done. Pt verbalizes understanding.
--- NOTE | 2022-03-17 15:01 | NUR ---
03/17/22 1501 Bhumi Banks PRIOR TO PROCEDURE History, Chart, Medications and Allergies reviewed before start of procedure. Patient confirms NPO status and agrees with scheduled surgery. 3-LEAD EKG REVIEWED WITH PHYSICIAN PRIOR TO START OF PROCEDURE. MONITOR INTACT WITH CONTINUOUS PULSE OXIMETRY AND INTERMITTENT BP. PATIENT DETERMINED TO BE ASA APPROPRIATE FOR PROPOFOL SEDATION PRIOR TO START OF PROCEDURE BY .
[2022-03-17 17:11] LABS: BASOPHILS ABSOLUTE AUTO 0.03 K/mm3 (0.00-0.23); BASOPHILS PERCENT AUTO 1 % (0-2); EOSINOPHILS PERCENT AUTO 6 % (0-6); Hematocrit 23.1 % (37.0-53.0); Hemoglobin 7.7 g/dL (13.5-17.5); IMMATURE GRAN ABSOLUTE AUTO 0.01 K/mm3 (0.00-0.10); IMMATURE GRAN PERCENT AUTO 0 % (0-1); LYMPHOCYTES ABSOLUTE AUTO 1.26 K/mm3 (0.84-5.20); LYMPHOCYTES PERCENT AUTO 24 % (21-46); MONOCYTES ABSOLUTE AUTO 0.54 K/mm3 (0.16-1.47); MONOCYTES PERCENT AUTO 10 % (4-13); Mean Corpuscular HGB 30.7 pg (26.0-34.0); Mean Corpuscular HGB Conc 33.3 g/dL (31.5-36.5); Mean Corpuscular Volume 92 fL (80-100); Mean Platelet Volume 12.5 fL (9.1-12.4); NEUTROPHILS ABSOLUTE AUTO 3.16 K/mm3 (1.96-9.15); NEUTROPHILS PERCENT AUTO 60 % (41-73); NRBC ABSOLUTE 0.02 K/mm3 (0.00-0.02); NRBC Auto 0.4 /100 WBC (0.0-0.2); Platelet Count 144 K/mm3 (150-400); RDW Coefficient Variation 15.9 % (11.7-14.2); RDW Standard Deviation 52.3 fL (35.1-46.3); Red Blood Cell Count 2.51 M/mm3 (4.30-5.90)
--- NOTE | 2022-03-17 18:07 | NUR ---
END OF SHIFT: PATIENT HAS AN EGD NO INTERVENTIONS PLAN FOR BLOOD LOSS SCAN TOMORROW 03/18 AND CONTINUE TO OBSERVE. Hgb 7.7 FROM 8.0 THIS AM, CONTINUE TO MONITOR. DR. Santiago FROM GI FOLLOWING PATIENT, PATIENT HAS BEEN AFEBRILE, MAP > 60, BBB WITH SB TO SR 50-60'S OCCASSIONAL DROP INTO 40'S PATIENT ENDORSES NORMAL. PATIENT HAS NO CHEST PAIN, SIGNS OF DIZZINESS PRESSURE OR SOB. ENDORSESD LESSENING BLOOD IN THE STOOL, NO LONGER GOING TO TX TO OH PLAN ABOVE MAY CHANGE WITH SCAN. PATIENT HAS BEEN IND SBA. WILL CONTINUE TO MONITOR, NO QUESTIONS CONCERNS OR COMMENTS FROM THIS SEARCH DEVELOPER OR PATIENT.
[2022-03-17] MEDS ORDERED: VITAMIN E100 UNI1 (18:17)
[2022-03-18 00:07] LABS: BASOPHILS ABSOLUTE AUTO 0.03 K/mm3 (0.00-0.23); BASOPHILS PERCENT AUTO 1 % (0-2); EOSINOPHILS ABSOLUTE AUTO 0.36 K/mm3 (0.00-0.68); EOSINOPHILS PERCENT AUTO 6 % (0-6); Hematocrit 23.9 % (37.0-53.0); Hemoglobin 7.9 g/dL (13.5-17.5); IMMATURE GRAN ABSOLUTE AUTO 0.01 K/mm3 (0.00-0.10); IMMATURE GRAN PERCENT AUTO 0 % (0-1); LYMPHOCYTES ABSOLUTE AUTO 1.46 K/mm3 (0.84-5.20); LYMPHOCYTES PERCENT AUTO 24 % (21-46); MONOCYTES ABSOLUTE AUTO 0.57 K/mm3 (0.16-1.47); MONOCYTES PERCENT AUTO 9 % (4-13); Mean Corpuscular HGB 30.7 pg (26.0-34.0); Mean Corpuscular HGB Conc 33.1 g/dL (31.5-36.5); Mean Corpuscular Volume 93 fL (80-100); NEUTROPHILS ABSOLUTE AUTO 3.76 K/mm3 (1.96-9.15); NEUTROPHILS PERCENT AUTO 61 % (41-73); Platelet Count 150 K/mm3 (150-400); RDW Coefficient Variation 15.8 % (11.7-14.2); RDW Standard Deviation 52.9 fL (35.1-46.3); Red Blood Cell Count 2.57 M/mm3 (4.30-5.90); White Blood Cell Count 6.19 K/mm3 (4.00-11.30)
[2022-03-18 05:03] LABS: Hematocrit 23.4 % (37.0-53.0); Hemoglobin 7.7 g/dL (13.5-17.5)
--- NOTE | 2022-03-18 05:40 | NUR ---
PT UPDATE PT HAD LOW BP AT 0400 VITALS, MAP LESS THAN 60. CALL PLACED TO MD KELLY. MD KELLY W/ ORDERS TO RECHECK H&H AND 500 ML NS BOLUS. BOLUS GIVEN. H&H RECHECKED, 7.7. MOST RECENT BP 94/45 (60). CALL PLACED TO MD KELLY WITH RESULTS. MD KELLY W/ ORDERS FOR 5MG MIDODRINE X1.
--- NOTE | 2022-03-18 06:01 | NUR ---
SHIFT SUMMARY PT A&0X4. SP02>92% ON RA. TELEMETRY SHOWS NSR/SINUS RENETTA HR MOSTLY 50'S. LOW BP THIS AM, SEE PREVIOUS NOTE. DENIES PAIN. INDEPENDENT IN ROOM, UP TO BATHROOM TO VOID. PT STATES NO BM THIS SHIFT. PT SLEPT OFF AND ON T/O NIGHT. STATES HE HOPES TO GO HOME IF HIS H&H DON'T DECREASE. CALL LIGHT IN REACH.
--- NOTE | 2022-03-18 15:37 | NUR ---
PATIENT HAD A BLOODY BM WITH AN ESTIMATED 50-100 mL OF ANGÉLICA RED BLOOD. BLOOD LOSS SCAN IN. CALL TO PROVIDER CELL, LEFT MESSAGE TO CALL BACK PCU.
--- NOTE | 2022-03-18 18:40 | NUR ---
END OF SHIFT: PATIENT DENIES CHEST PAIN SOB OR PRESSURE. PATIENT WAS 30 WITHOUT A BLOODY BM THEN HAD A SM/MED BLODY BOWEL MOVEMENT, HOSPIRTALIST LEFT MESSAGE AND CALLED, PLEASE SEE NOTE. DR. Santiago SEEN PATIENT IN PERSON AND PRESUMPTIVELY WILL BE DOING TWO SUPREP. WILL INFORM NIGHT RN. PATIENT IS INFUSING A UNIT OF BLOOD. TOLERATING VERY WELL, INCREASED MAP SOON INFUSING STARTED. PATIENT ORINGINAL IV WAS LEAKING, PLACED A NEW ONE. PATIENT IS VERY ALERT AND ORIENTED PLEASANT AND UNDERSTANDING OF SITUATION. WILL CONTINUE TO MONITOR UNTIL SHIFT CHANGE.
[2022-03-18 21:32] LABS: BASOPHILS ABSOLUTE AUTO 0.03 K/mm3 (0.00-0.23); BASOPHILS PERCENT AUTO 0 % (0-2); EOSINOPHILS ABSOLUTE AUTO 0.42 K/mm3 (0.00-0.68); EOSINOPHILS PERCENT AUTO 6 % (0-6); Hematocrit 25.7 % (37.0-53.0); Hemoglobin 8.6 g/dL (13.5-17.5); IMMATURE GRAN ABSOLUTE AUTO 0.01 K/mm3 (0.00-0.10); IMMATURE GRAN PERCENT AUTO 0 % (0-1); LYMPHOCYTES ABSOLUTE AUTO 1.46 K/mm3 (0.84-5.20); LYMPHOCYTES PERCENT AUTO 21 % (21-46); MONOCYTES PERCENT AUTO 9 % (4-13); Mean Corpuscular HGB Conc 33.5 g/dL (31.5-36.5); Mean Corpuscular Volume 93 fL (80-100); Mean Platelet Volume 11.8 fL (9.1-12.4); NEUTROPHILS PERCENT AUTO 63 % (41-73); Platelet Count 158 K/mm3 (150-400); RDW Coefficient Variation 15.3 % (11.7-14.2); RDW Standard Deviation 50.4 fL (35.1-46.3); Red Blood Cell Count 2.77 M/mm3 (4.30-5.90); White Blood Cell Count 6.82 K/mm3 (4.00-11.30)
[2022-03-19 03:45] LABS: BASOPHILS ABSOLUTE AUTO 0.03 K/mm3 (0.00-0.23); BASOPHILS PERCENT AUTO 1 % (0-2); EOSINOPHILS ABSOLUTE AUTO 0.37 K/mm3 (0.00-0.68); EOSINOPHILS PERCENT AUTO 7 % (0-6); Hematocrit 24.7 % (37.0-53.0); IMMATURE GRAN ABSOLUTE AUTO 0.01 K/mm3 (0.00-0.10); IMMATURE GRAN PERCENT AUTO 0 % (0-1); LYMPHOCYTES ABSOLUTE AUTO 1.33 K/mm3 (0.84-5.20); LYMPHOCYTES PERCENT AUTO 24 % (21-46); MONOCYTES ABSOLUTE AUTO 0.54 K/mm3 (0.16-1.47); MONOCYTES PERCENT AUTO 10 % (4-13); Mean Corpuscular HGB Conc 32.4 g/dL (31.5-36.5); Mean Corpuscular Volume 96 fL (80-100); Mean Platelet Volume 12.2 fL (9.1-12.4); NEUTROPHILS ABSOLUTE AUTO 3.36 K/mm3 (1.96-9.15); NEUTROPHILS PERCENT AUTO 60 % (41-73); Platelet Count 152 K/mm3 (150-400); RDW Coefficient Variation 15.9 % (11.7-14.2); RDW Standard Deviation 53.1 fL (35.1-46.3); Red Blood Cell Count 2.58 M/mm3 (4.30-5.90); White Blood Cell Count 5.64 K/mm3 (4.00-11.30)
[2022-03-19 04:10] LABS: Albumin, Blood 2.6 g/dL (3.4-5.0); Albumin/Globulin Ratio 1.3 (0.8-1.8); Bilirubin, Total 0.4 mg/dL (0.1-1.0); Bun/Creatinine Ratio 18.5 (12.0-20.0); Calcium, Blood 8.8 mg/dL (8.5-10.1); Creatinine, Blood 0.59 mg/dL (0.60-1.20); Potassium, Blood 4.1 mmol/L (3.5-5.5); Total Protein, Blood 4.6 g/dL (6.4-8.2)
--- NOTE | 2022-03-19 05:57 | NUR ---
shift summary pt a&ox4. sp02>92% on ra. telemetry shows sinus holger, hr 40's-60's, bp soft. pt independent in room. started bowel prep at 2000 per orders. multiple red and brown liquid bm on bsc. pt was in the middle of getting 1 unit prbc transfused at change of shift. pt awake most of night. call light in reach.
--- NOTE | 2022-03-19 11:49 | NUR ---
UPDATE / GONE TO PROCEDURE PT A&O X4. VSS. SPO2 > 92% ON RA. MONITOR SHOWING SB, HR 40s-50s. PT DENIES PAIN/DISCOMFORT, N/V. PT REPORTING LAST BM AFTER BOWEL PREP THIS AM TO BE "LIKE CREAMY SQUASH SOUP W/ A FAINT KETCHUP TINGE." MD SALEEM NOTIFIED PT STOOL NOT CLEAR POST BOWEL PREP. PT THEN TAKEN FOR COLONOSCOPY @ APPROX 1145.
--- NOTE | 2022-03-19 11:58 | NUR ---
History, Chart, Medications and Allergies reviewed before start of procedure.Lungs clear T/O to Auscultation. Patient confirms NPO status and agrees with scheduled surgery. Pre-Op teaching done. Pt verbalizes understanding. at bedside.
--- NOTE | 2022-03-19 12:29 | NUR ---
03/19/22 1229 Doug Brewer History, Chart, Medications and Allergies reviewed before start of procedure. Patient confirms NPO status and agrees with scheduled surgery. 3-LEAD EKG REVIEWED WITH PHYSICIAN PRIOR TO START OF PROCEDURE. MONITOR INTACT WITH CONTINUOUS PULSE OXIMETRY AND INTERMITTENT BP. PATIENT DETERMINED TO BE ASA APPROPRIATE FOR PROPOFOL SEDATION PRIOR TO START OF PROCEDURE BY DR. SALEEM.
--- NOTE | 2022-03-19 14:27 | NUR ---
UPDATE PT BROUGHT TO
--- NOTE | 2022-03-19 18:55 | NUR ---
END OF SHIFT NOTE PT A&O X4. VSS. SPO2 > 92% ON RA. MONITOR SHOWS SB-SR, HR 40's-60's. PT DENYING BLOODY STOOL, REPORTING BMs POST BOWEL PREP & COLONOSCOPY TODAY BEING CLEAR & YELLOW. PT NOW ON CARDIAC DIET, TOLERATING WELL.
[2022-03-20 04:05] LABS: BASOPHILS ABSOLUTE AUTO 0.03 K/mm3 (0.00-0.23); BASOPHILS PERCENT AUTO 1 % (0-2); EOSINOPHILS ABSOLUTE AUTO 0.38 K/mm3 (0.00-0.68); EOSINOPHILS PERCENT AUTO 7 % (0-6); Hematocrit 26.1 % (37.0-53.0); Hemoglobin 8.5 g/dL (13.5-17.5); IMMATURE GRAN ABSOLUTE AUTO 0.01 K/mm3 (0.00-0.10); IMMATURE GRAN PERCENT AUTO 0 % (0-1); LYMPHOCYTES ABSOLUTE AUTO 1.27 K/mm3 (0.84-5.20); LYMPHOCYTES PERCENT AUTO 23 % (21-46); MONOCYTES ABSOLUTE AUTO 0.41 K/mm3 (0.16-1.47); MONOCYTES PERCENT AUTO 8 % (4-13); Mean Corpuscular HGB 30.5 pg (26.0-34.0); Mean Corpuscular HGB Conc 32.6 g/dL (31.5-36.5); Mean Corpuscular Volume 94 fL (80-100); Mean Platelet Volume 12.6 fL (9.1-12.4); NEUTROPHILS ABSOLUTE AUTO 3.37 K/mm3 (1.96-9.15); NEUTROPHILS PERCENT AUTO 62 % (41-73); Platelet Count 172 K/mm3 (150-400); RDW Coefficient Variation 15.8 % (11.7-14.2); RDW Standard Deviation 50.6 fL (35.1-46.3); Red Blood Cell Count 2.79 M/mm3 (4.30-5.90); White Blood Cell Count 5.47 K/mm3 (4.00-11.30)
--- NOTE | 2022-03-20 05:58 | NUR ---
SHIFT SUMMARY PT A&OX4, INDEPENDENT IN ROOM. SP02>92% ON RA. TELEMETRY SHOWS SINUS RENETTA, HR MOSTLY 50'S. PT UP TO BATHROOM INDEPENDENTLY. REPORTS NO BM THIS SHIFT. AT SOME JELLO AND CHEESE THIS EVENING. DENIED PAIN. SLEPT OFF AND ON T/O NIGHT. PT STATES "EXCITED TO GO HOME" AND CLAIMS THATS WHY HIS BLOOD PRESSURE IS NOT SOFT IT WAS. CALL LIGHT IN REACH.
--- NOTE | 2022-03-20 08:56 | NUR ---
CARE ASSUMPTION PT A&O X4. VSS. SPO2 > 92% ON RA. MONITOR SHOWING SB-SR, HR 50s-60s. PT DENIES N/V OR BLOODY BM OVERNIGHT/THIS AM. PT NOW AWAITING MD FUENTES CONSULT, PT NPO UNTIL FURTHER NOTICE.
--- NOTE | 2022-03-20 10:41 | NUR ---
UPDATE MD FUENTES IN TO SEE PT W/ PLAN TO F/U OUTPT. MD MENDEZ NOTIFIED W/ MD MENDEZ PLAN TO DISCHARGE PT HOME TODAY IF NEXT HGB > 8 AND PT W/ NO FURTHER BLEEDING.
[2022-03-20 14:15] LABS: Hematocrit 24.8 % (37.0-53.0)
--- NOTE | 2022-03-20 14:47 | NUR ---
UPDATE PT HGB 8.0 W/ PT REPORT OF NO BLEEDING. MD MENDEZ NOTIFIED W/ INSTRUCTION TO NOT DISCHARGE PT D/T HGB DOWN FROM PRIOR RESULT OF 8.5.
--- NOTE | 2022-03-20 17:11 | NUR ---
END OF SHIFT NOTE PT CONTINUES TO BE A&O X4. INDEPENDENT IN RM. VSS. SPO2 > 92% ON RA. MONITOR SHOWING SB-SR, HR 40s-60s. PT DENIES N/V, PAIN/DISCOMFORT, BLOODY STOOL THIS SHIFT.
[2022-03-21 05:13] LABS: BASOPHILS ABSOLUTE AUTO 0.03 K/mm3 (0.00-0.23); BASOPHILS PERCENT AUTO 1 % (0-2); EOSINOPHILS ABSOLUTE AUTO 0.28 K/mm3 (0.00-0.68); EOSINOPHILS PERCENT AUTO 6 % (0-6); Hematocrit 24.3 % (37.0-53.0); IMMATURE GRAN ABSOLUTE AUTO 0.02 K/mm3 (0.00-0.10); IMMATURE GRAN PERCENT AUTO 0 % (0-1); LYMPHOCYTES ABSOLUTE AUTO 1.01 K/mm3 (0.84-5.20); LYMPHOCYTES PERCENT AUTO 22 % (21-46); MONOCYTES ABSOLUTE AUTO 0.41 K/mm3 (0.16-1.47); MONOCYTES PERCENT AUTO 9 % (4-13); Mean Corpuscular HGB 31.3 pg (26.0-34.0); Mean Corpuscular HGB Conc 32.9 g/dL (31.5-36.5); Mean Corpuscular Volume 95 fL (80-100); Mean Platelet Volume 12.1 fL (9.1-12.4); NEUTROPHILS ABSOLUTE AUTO 2.76 K/mm3 (1.96-9.15); NEUTROPHILS PERCENT AUTO 61 % (41-73); Platelet Count 181 K/mm3 (150-400); RDW Coefficient Variation 15.7 % (11.7-14.2); Red Blood Cell Count 2.56 M/mm3 (4.30-5.90); White Blood Cell Count 4.51 K/mm3 (4.00-11.30)
[2022-03-21 05:33] LABS: Albumin, Blood 2.7 g/dL (3.4-5.0); Albumin/Globulin Ratio 1.3 (0.8-1.8); Bilirubin, Total 0.3 mg/dL (0.1-1.0); Bun/Creatinine Ratio 29.1 (12.0-20.0); Calcium, Blood 8.8 mg/dL (8.5-10.1); Creatinine, Blood 0.62 mg/dL (0.60-1.20); Globulin, Blood 2.1 g/dL (2.2-4.0); Potassium, Blood 3.9 mmol/L (3.5-5.5); Total Protein, Blood 4.8 g/dL (6.4-8.2)
--- NOTE | 2022-03-21 05:45 | NUR ---
SHIFT SUMMARY NO ACUTE CHANGES THIS SHIFT. PT A&OX4, INDEPENDENT IN ROOM. SP02>92% ON RA. TELEMETRY SHOWS SINUSBRADY, HR 50'S MOSTLY. PT UP TO BATHROOM INDEPENDENTLY TO VOID. DENIED PAIN. PT TALKED ABOUT HOW EXCITED HE WAS TO GO HOME TO SEE HIS DOGS AND . SLEPT MOST OF NIGHT. CALL LIGHT IN REACH.
--- NOTE | 2022-03-21 07:40 | NUR ---
AM ASSESSMENT: Pt sitting up in bed. Dressed and states he is ready for discharge. LS clear. HR reg with murmur. BT positive. Pt denies having any BM's. States he has no signs of bleeding and no abd cramping. Pulses palp. VSS. Pt very pleasant and cooperative. Call light in reach. Will continue to monitor.
[2022-03-21] MEDS ORDERED: PANT40 PO (09:43)
--- NOTE | 2022-03-21 11:00 | NUR ---
DISCHARGE Pt given verbal and written discharge instructions. Verbalized unerstanding, denies questions. IV was discontinued, cath intact. Stable at time of discharge. [place] [facility] [place]. Pt escorted out via w/c.
== END 2022-03-21 11:14 | disposition home or self-care (01) | DRG 378 ==
LOC: ER 23:24 → PCU 23:25
PROVIDERS: Internal Medicine; Internal Medicine Gastroenterology; Physician Assistant; Student in an Organized Health Care Education/Training Program; ADMIT Family Medicine
PROC: 0W3P8ZZ Control Bleeding in Gastrointestinal Tract, Via Natural or Artificial Opening Endoscopic (ICD-10-PCS; principal; 2022-03-13 16:00)
PROC: 30233N1 Transfusion of Nonautologous Red Blood Cells into Peripheral Vein, Percutaneous Approach (ICD-10-PCS; 2022-03-14)
PROC: 0DJ08ZZ Inspection of Upper Intestinal Tract, Via Natural or Artificial Opening Endoscopic (ICD-10-PCS; 2022-03-17)
PROC: 0DJD8ZZ Inspection of Lower Intestinal Tract, Via Natural or Artificial Opening Endoscopic (ICD-10-PCS; 2022-03-19)
DX: K57.33 Diverticulitis of large intestine without perforation or abscess with bleeding (principal); D62 Acute posthemorrhagic anemia; Z20.822 Contact with and (suspected) exposure to COVID-19; K64.8 Other hemorrhoids; D69.6 Thrombocytopenia, unspecified; K63.5 Polyp of colon; I25.10 Atherosclerotic heart disease of native coronary artery without angina pectoris; Q27.39 Arteriovenous malformation, other site; N40.0 Benign prostatic hyperplasia without lower urinary tract symptoms; E78.5 Hyperlipidemia, unspecified; F32.A Depression, unspecified; F41.9 Anxiety disorder, unspecified; G47.33 Obstructive sleep apnea (adult) (pediatric); Z79.02 Long term (current) use of antithrombotics/antiplatelets; Z90.89 Acquired absence of other organs; Z90.49 Acquired absence of other specified parts of digestive tract; Z98.890 Other specified postprocedural states; Z95.2 Presence of prosthetic heart valve; Z87.891 Personal history of nicotine dependence; Z79.899 Other long term (current) drug therapy
CPT/HCPCS: 36415; 36430; 74018; 74174; 78278; 80053; 80069; 82272; 85014; 85018; 85025; 85027; 86850; 86900; 86901; 86923; 93005; 93010; 96374; 96376; 99285-25; A9270; A9560; C9113; G0378; J2250; J2405; J2704; J7040; J7120; P9016; Q9967; U0004

== ENCOUNTER 2022-04-24 06:24 | Day surgery (SDC) | payer MEDICARE ==
[~2022-04-24] VITALS: Ht 175.3 cm; Wt 77.0 kg
[~2022-04-24 06:24] MED LIST changes: +CLOP75 PO; +ESCI10; +PANT40 PO; +VITAMIN E100 UNI1
--- NOTE | 2022-04-24 10:59 | NUR ---
PATIENT ARRIVED BACK FROM THE [facility] POST PROCEDURE WITH LEFT GROIN ANGIOSEAL SITE AND RIGHT IJ SITE, MANUAL PRESSURE. BOTHE DRESSING CDI. NO HEMATOMA. NO BLEEDING NOTED. PATIETN PLACED ON THE MONITOR AND CALL LIGHT IN REACH. HOB FLAT ADN PAITENT IN REVERSE TRENDELENBERG FOR COMFORT. ALVARENGA CATHETER PLACED DURIGN THE CASE , NOTED TO BE DRAINING CLEAR YELLOW URINE. DR. FUENTES ORDERED TO BE DISCONTINUED ANYTINE PATIENT IS ABLE TO BE UP OR URINATE ON OWN. CALLED ADN NOTIFIED THAT PROCEDURE WAS COMPLETED AND PATIENT WAS IN RECOVERY. PATIENT IS SLEEPY BUT WAKES WITH VERBAL STIMULI.
--- NOTE | 2022-04-24 11:00 | NUR ---
LEFT GROIN SITE SOFT AND NONTENDER. DRESSING D&I. NO HEMATOMA NO BLEEDING. LEFT DP LUSE 2. RIGHT IJ SITE SFT AND NONTENDER. NO HEAMTOMA, NO BLEEDING. DRESSING D&I. PATIENT RESTING, BUT AWAKENS EASILY AND RESPONDS APPROPRIATELY. DENIES DISCOMFORT. ALVARENGA IN PLACE WITH LIGHT YELLOW URINE.
--- NOTE | 2022-04-24 13:20 | NUR ---
batres catheter DCed. patient up to restroom by self. tolerated well. patient dressed. left droin site soft and nontender. no hematom, no bleedeing. dressing D&I.
--- NOTE | 2022-04-24 14:32 | NUR ---
patient in viewing room with Dr Maldonado to review images.
--- NOTE | 2022-04-24 14:32 | NUR ---
patient and verbalized understanding of discharge instructions and precautions. left groin site remains stable. right IJ site remains stable. IV site dced with catheter intact. no further questions. patient discharge home via wheel cahir to waiting car.
[2022-05-20] MEDS ORDERED: METAMUCIL PO (14:35)
== END 2022-04-24 14:52 | disposition home or self-care (01) ==
LOC: MHTC 06:24
DX: Q27.30 Arteriovenous malformation, site unspecified (principal); I25.10 Atherosclerotic heart disease of native coronary artery without angina pectoris; E78.5 Hyperlipidemia, unspecified; Z79.02 Long term (current) use of antithrombotics/antiplatelets; Z79.899 Other long term (current) drug therapy
CPT/HCPCS: 37241; 37242; 75625; 75736; 75820; 75825; 76937; 99152; 99153; C1760; C1769; C1887; C1894; J0461; J1644; J2250; J3010; J7030; J7040; Q9967

== ENCOUNTER 2022-05-21 08:05 | Day surgery (SDC) | payer MEDICARE ==
[~2022-05-21] VITALS: Ht 175.3 cm; Wt 78.0 kg
[~2022-05-21 08:05] MED LIST changes: +METAMUCIL PO
[2022-05-21] MEDS ORDERED: TADA10TA PO (08:26)
[2022-05-21 08:50] LABS: BASOPHILS ABSOLUTE AUTO 0.05 K/mm3 (0.00-0.23); BASOPHILS PERCENT AUTO 1 % (0-2); EOSINOPHILS ABSOLUTE AUTO 0.31 K/mm3 (0.00-0.68); EOSINOPHILS PERCENT AUTO 6 % (0-6); Hematocrit 36.3 % (37.0-53.0); Hemoglobin 11.5 g/dL (13.5-17.5); IMMATURE GRAN ABSOLUTE AUTO 0.01 K/mm3 (0.00-0.10); IMMATURE GRAN PERCENT AUTO 0 % (0-1); LYMPHOCYTES ABSOLUTE AUTO 1.07 K/mm3 (0.84-5.20); LYMPHOCYTES PERCENT AUTO 21 % (21-46); MONOCYTES ABSOLUTE AUTO 0.43 K/mm3 (0.16-1.47); MONOCYTES PERCENT AUTO 8 % (4-13); Mean Corpuscular HGB 27.9 pg (26.0-34.0); Mean Corpuscular HGB Conc 31.7 g/dL (31.5-36.5); Mean Corpuscular Volume 88 fL (80-100); Mean Platelet Volume 12.8 fL (9.1-12.4); NEUTROPHILS ABSOLUTE AUTO 3.33 K/mm3 (1.96-9.15); NEUTROPHILS PERCENT AUTO 64 % (41-73); Platelet Count 185 K/mm3 (150-400); RDW Coefficient Variation 13.5 % (11.7-14.2); RDW Standard Deviation 43.7 fL (35.1-46.3); Red Blood Cell Count 4.12 M/mm3 (4.30-5.90)
[2022-05-21 09:04] LABS: International Normalized Ratio 1.04; Prothrombin Time Results 10.9 Sec (9.7-11.5)
[2022-05-21 09:09] LABS: Bun/Creatinine Ratio 16.6 (12.0-20.0); Calcium, Blood 9.3 mg/dL (8.5-10.1); Creatinine, Blood 0.66 mg/dL (0.60-1.20)
--- NOTE | 2022-05-21 13:59 | NUR ---
PT RETURNED TO RECOVERY ROOM IN BED. RIGHT IJ VENOUS SITE SOFT NON-TENDER WITH NO BLEEDING NO HEMATOMA AND INTACT DRESSING. LEFT FEMORAL GROIN SITE SOFT WITH NO HEMATOMA, NO BLEEDING AND INTACT DRESSING. PT DENIES CHEST PAIN. PT STATES LEFT GROIN SITE "SORENESS". CALL LIGHT IN REACH.
--- NOTE | 2022-05-21 15:07 | NUR ---
FULL REPORT PROVIDED BAYLEE MENDIOLA TO ASSUME CARE OF PT IN RECOVERY ROOM.
--- NOTE | 2022-05-21 16:00 | NUR ---
PT AND S/O VERBALIZES UNDERSTANDING WRITTEN AND VERBAL INSTRUCTIONS. PT DENIES NEEDS. PT SITES REMAIN STABLE, NO BLEEDING OR HEMATOMA NOTED. VSS. NADN. PT SITTING UP AND EATING LUNCH AT THIS TIME.
== END 2022-05-21 16:15 | disposition home or self-care (01) ==
LOC: MHTC 08:05
PROVIDERS: Radiology Diagnostic Radiology
DX: Q27.32 Arteriovenous malformation of vessel of lower limb (principal); I25.10 Atherosclerotic heart disease of native coronary artery without angina pectoris; E78.5 Hyperlipidemia, unspecified; D69.6 Thrombocytopenia, unspecified
CPT/HCPCS: 36415; 37242; 75716; 75774; 75820; 76937; 80048; 85025; 85610; 99152; 99153; C1760; C1769; C1887; C1894; J0461; J1644; J2250; J2310; J3010; J7030; J7040; Q9967

== ENCOUNTER → 2023-05-07 | Outpatient (CLI) | payer MEDICARE ==
[~2023-05-07] MED LIST changes: +TADA10TA PO
== END ==
LOC: LAB 12:32 → LAB SHORT 12:32
PROVIDERS: Internal Medicine
DX: Z12.5 Encounter for screening for malignant neoplasm of prostate (principal)
CPT/HCPCS: 36415; G0103